=== PATIENT | female | born 2000 | race Hispanic/Latino ===

== ENCOUNTER → 2023-07-19 | Emergency (ER) | payer SELFPAY ==
[~2023-07-19] MED LIST: LORAZEPAM 1 MG TABLET ONE
--- OUTSIDE RECORDS SUMMARY | 2023-07-19 21:47 | XMS REPORT | Continuity of Care Document ---
Author Name Unknown Address [address] [place] [address]. [address] [place] [address] [facility]connect Address [address] [facility]. [address] [place] [address] Care Team Providers Care Truck Driver Flatbed Name Role Phone Unavailable Unavailable Unavailable Encounters Start Date/Time End Date/Time Encounter Type Admission Type Attending Clinicians Care Facility Care Department Encounter ID Source 2023-05-05 13:28:20 2023-05-05 13:28:20 Outpatient [facility] [id number] 2023-03-24 15:04:44 2023-03-24 15:04:44 Outpatient [facility] [id number] 2023-01-20 13:22:56 2023-01-20 13:22:56 Outpatient [facility] [id number] Results Test Description Test Time Test Comments Results Result Co mments Source HIV 1/2 4TH GEN, RFLX [id number] 03:46:24* Test Item Value Reference Range Interpretation Comme [facility] HIV 1/2 4TH GEN, RFLX CONF (test code = 3514) NON-REACTIVE NON-REACTIVE UNLESS OTHERWISE INDICATED, ALL TESTING PERFORMED AT [facility] [address] [place] [id number] CLEAT MAKER: PAT AGUAYO M.D. CLIA NUMBER [id number] [facility] [place]. [id number] HEPATITIS PANEL, [id number] 03:46:24* Test Item Value Reference Range Interpretation Comme nts HEPATITIS A IgM (test code = 63908) NON-REACTIVE NON-REACTIVE HEPATITIS B CORE IgM (test code = 4644) NON-REACTIVE NON-REACTIVE HEPATITIS B SURF AG (test code = 2739) NON-REACTIVE NON-REACTIVE HEPATITIS C ANTIBODY (test code = 4675) NON-REACTIVE NON-REACTIVE INTERPRETATION HEPATITIS A: (test code = 2552) (NOTE) Hepatitis A serology shows no evidence of acute hepatitis A. INTERPRETATION HEPATITIS B: (test code = 95757) (NOTE) Hepatitis B serology shows no evidence of acute hepatitis B andno indication of exposure to hepatitis B virus in the previous tito eight months. INTERPRETATION HEPATITIS C: (test code = 69521) (NOTE) Hepatitis C serology shows no evidence of exposure to hepatitisC virus at this time. It can take up to 12 months after exposure tothe hepatitis C virus for antibodies to become detectable in the blood in certain patients. [id number] 03:22:42* Test Item Value Reference Range Interpretation Comme nts RPR RESULT (test code = 3501) NON-REACTIVE NON-REACTIVE RPR TITER (test code = 3500) NOT INDIC. TITER NOT INDIC. TSH, THIRD [id number] 03:54:00* Test Item Value Reference Range Interpretation Comme nts TSH, THIRD GENERATION (test code = 2821) 1.160 UIU/ML 0.400-4.100 UNLESS OTHERWISE INDICATED, ALL TESTING PERFORMED AT [facility] [address] [place] [address] CLEAT MAKER: PAT AGUAYO M.D. CLIA NUMBER [id number] [facility] [place]. [id number] COMPREHENSIVE METABOLIC [id number] 03:24:28* Test Item Value Reference Range Interpretation Comme nts GLUCOSE (test code = 2217) 95 MG/DL 70-99 BUN (test code = 2208) 13 MG/DL 6-20 CREATININE (test code = 2214) 0.94 MG/DL 0.60-1.30 eGFR (2020 CKD-EPI) (test co de = 43663) 87 ML/MIN/1.73 >60 CALC BUN/CREAT (test code = 2235) 14 RATIO 6-28 SODIUM (test code = 2231) 140 MEQ/L 133-146 POTASSIUM (test code = 2228) 4.4 MEQ/L 3.5-5.4 CHLORIDE (test code = 2215) 103 MEQ/L 95-107 CARBON DIOXIDE (test code = 2206) 28 MEQ/L 19-31 CALCIUM (test code = 2209) 10.1 MG/DL 8.5-10.5 PROTEIN, TOTAL (test code = 222) 7.5 G/DL 6.1-8.3 ALBUMIN (test code = 220) 4.9 G/DL 3.5-5.2 CALC GLOBULIN (test code = 2240) 2.6 G/DL 1.9-3.7 CALC A/G RATIO (test code = 2234) 1.9 RATIO 1.0-2.6 BILIRUBIN, TOTAL (test code = 2207) 0.4 MG/DL <=1.2 ALKALINE PHOSPHATASE (test code = 2204) 61 U/L 40-115 AST (test code = 2218) 27 U/L 9-40 ALT (test code = 2219) 22 U/L 5-40 TSH, THIRD [id number] 05:46:02* Test Item Value Reference Range Interpretation Comme nts TSH, THIRD GENERATION (test code = 2821) 0.264 UIU/ML 0.400-4.100 L UNLESS OTHERWISE INDICATED, ALL TESTING PERFORMED AT [facility] [address] [place] [id number] CLEAT MAKER: PAT AGUAYO M.D. CLIA NUMBER [id number] [facility] [place]. [id number]
[2023-07-19 22:54] LABS: Specific Gravity 1.008 (1.005-1.030)
[2023-07-19 22:59] LABS: Absolute Lymphocytes (CBC) 1.6 K/uL (0.7-4.9); Hematocrit 38.7 % (36.0-45.0); Lymphocytes % 17.1 % (15.3-44.8); MCV 86.4 fL (80-100); MPV 9.1 fL (7.6-11.3); Platelets 232 thou/uL (152-406); RBC Red Blood Cell Count 4.48 M/uL (3.86-4.86)
[2023-07-19 23:02] LABS: Barbiturates NEGATIVE (NEGATIVE); Benzodiazepines NEGATIVE (NEGATIVE); Cocaine NEGATIVE (NEGATIVE); METHAMPHETAM NEGATIVE (NEGATIVE); Methadone NEGATIVE (NEGATIVE); Opiates NEGATIVE (NEGATIVE); Phencyclidine NEGATIVE (NEGATIVE); THC Cannibis POSITIVE (NEGATIVE)
[2023-07-19 23:16] LABS: Thyroid Stimulating Hormone 2.22 uIU/mL (0.358-3.740)
[2023-07-19 23:40] LABS: Albumin 3.8 g/dL (3.4-5.0); Bilirubin Direct 0.1 mg/dL (0-0.2); Bilirubin Indirect, Calculated 0.4 mg/dL (0.2-0.8); Bilirubin Total 0.5 mg/dL (0.2-1.0); Magnesium 2.2 mg/dL (1.6-2.4); Potassium 3.6 mEq/L (3.5-5.1); Protein, Total 7.4 g/dL (6.4-8.2); Troponin High Sensitivity 5.1 pg/mL (<58.9)
--- NOTE | 2023-07-20 00:04 | ER ---
Nurse's Notes [facility] Name: Breanne Castellanos Age: 22 yrs Sex: Female : 2000 Arrival Date: 07/19/2023 Time: 21:43 Bed 14 Private MD: Diagnosis: Syncope Near;Syncopal episodes, convulsive activity Presentation: 07/19 21:46 Chief complaint: EMS states: HAD SUBJECTIVE SZ-LIKE ACTIVITY SOME WEEKS AGO, TONIGHT bp STUFFED NOSTRILS WITH ETOH PADS TO PREVENT ANOTHER SEIZURE. Coronavirus screen: At this time, the client does not indicate any symptoms associated with coronavirus-19. Ebola Screen: No symptoms or risks identified at this time. No acute neurological deficit is noted. Pre-hospital glucose is not applicable to this patient. Initial Sepsis Screen: Does the patient meet any 2 criteria? No. Patient's initial sepsis screen is negative. Does the patient have a suspected source of infection? No. Patient's initial sepsis screen is negative. Risk Assessment: Do you want to hurt yourself or someone else? Patient reports no desire to harm self or others. Onset of symptoms is unknown. Care prior to arrival: IV initiated. 20 GA, in the right antecubital area. 21:46 Method Of Arrival: EMS: [facility] bp 21:46 Acuity: MICHAEL 3 bp Triage Assessment: 21:54 The onset of the patients symptoms was July 19, 2023 at 21:55. General: Appears in bp no apparent distress. Behavior is calm, cooperative, appropriate for age. Pain: Denies pain. Neuro: Reports SEIZURE. Stroke Activation: Physician: Stroke Attending; Name: ; Notified At: ; Arrived At: Physician: Chief Stroke Resident; Name: ; Notified At: ; Arrived At: Physician: Stroke Resident; Name: ; Notified At: ; Arrived At: Physician: ED Attending; Name: ; Notified At: ; Arrived At: Physician: ED Resident; Name: ; Notified At: ; Arrived At: 21:46 N/A bp Historical: - Allergies: 21:54 No Known Allergies; bp - PMHx: 21:54 None; bp - Immunization history:: Adult Immunizations up to date. - Social history:: Smoking status: Patient denies any tobacco usage or history of. - Family history:: not pertinent. Screenin:56 [facility] ED Fall Risk Assessment (Adult) History of falling in the last 3 months, bp including since admission No falls in past 3 months (0 pts). Abuse screen: Denies threats or abuse. Denies injuries from another. Nutritional screening: No deficits noted. Tuberculosis screening: No symptoms or risk factors identified. Assessment: 22:36 VAN Scoring: Arm Drift: Patients demonstrates NO arm weakness. Patient is VAN Negative. bp [place] Swallow Protocol Exclusion Criteria: Unable to remain alert for testing: No NPO for medical/surgical reason by provider order No Tracheostomy tube present No No thin liquids due to preexisting dysphagia/baseline modified diet thickened liquids No Exclusion Criteria Result: Proceed Brief Cognitive Screen What is your name? Normal, Where are you right now? Normal, What year is it? Normal. Oral Mechanism Examination Facial Symmetry: Normal, Motion: Normal, Lip Closure: Normal, Oral Mechanism Result: Normal. 3 oz Water Swallow Challenge: Pt able to drink all water without stopping, coughing, choking or throat clearing: Yes Result: PASS. TNKase (Tenecteplase) Screening: Contraindications: Rapidly improving condition or minor deficit: Yes. 07/20 00:10 Reassessment: PT D/C HOME WITH FAMILY. bp Vital Signs: 07/19 21:46 BP 120 / 74; Pulse 96; Resp 16; Temp 98; Pulse Ox 99% ; bp 21:50 BP 124 / 77; Pulse 90; Resp 18; Temp 99.1(O); Pulse Ox 96% on R/A; Weight 72.57 kg; oe Height 5 ft. 7 in. ; 22:35 BP 118 / 75; Pulse 79; Resp 24; Pulse Ox 98% ; bp 07/20 00:10 BP 118 / 75; Pulse 82; Resp 20; Pulse Ox 97% ; bp 07/19 21:50 Body Mass Index 25.06 (72.57 kg, 170.18 cm) oe NIH Stroke Scale Scores: 07/19 22:36 NIHSS Score: 0 bp ED Course: 21:45 Patient arrived in ED. bp 21:48 Donnie Kelly MD is Attending Physician. sp4 21:54 Triage completed. bp 21:54 Arm band placed on. bp 21:56 Patient has correct armband on for positive identification. bp 21:56 Maintain EMS IV. Dressing intact. Good blood return noted. Site clean \T\ dry. Gauge \T\ bp site: 20 GA R AC. 21:57 Juan Lama, RN is Primary Nurse. bp 22:20 EKG done, by ED staff, reviewed by Donnie Kelly MD. wm 22:44 TSH Sent. wm 22:44 T4 Free Sent. wm 22:44 Urine Drug Screen Sent. wm 22:44 Test, Urine Sent. wm 22:44 Basic Metabolic Panel Sent. wm 22:44 CBC with Diff Sent. wm 22:44 LFT's Sent. wm 22:44 Magnesium Sent. wm 22:44 NT PRO-BNP Sent. wm 22:44 Troponin HS Sent. wm 22:45 Placed in gown. Bed in low position. Call light in reach. Side rails up X 1. Adult w/ wm patient. 22:47 Client placed on continuous cardiac and pulse oximetry monitoring. NIBP monitoring wm applied. 22:59 XRAY Chest (1 view) In Process Unspecified. EDMS 23:06 CT Head Brain wo Cont In Process Unspecified. EDMS 07/20 00:03 Iván Patterson MD is Referral Physician. sp4 00:10 No provider procedures requiring assistance completed. IV discontinued, intact, bp bleeding controlled, No redness/swelling at site. Pressure dressing applied. Administered Medications: 07/19 22:24 Not Given (Patient Refused): lorazepam1 mg PO once bp Medication: 22:36 VIS not applicable for this client. bp Outcome: 07/20 00:04 Discharge ordered by . sp4 00:10 Discharged to home ambulatory, with family, bp 00:10 Condition: stable 00:10 Discharge instructions given to patient, family, Instructed on discharge instructions, follow up and referral plans. medication usage, Demonstrated understanding of instructions, follow-up care, medications, Prescriptions given X 1, 00:12 Patient left the ED. bp NIH Stroke Scale - NIH Stroke Score Date: 07/19/2023 Time: 22:36 Total Score = 0 10. Dysarthria (speech clarity - read or repeat words) - 0(Normal) 11. Extinction and Inattention (visual/tactile/auditory/spatial/personal) - 0(No abnormality) 1a. Level of Consciousness (LOC) - 0(Alert) 1b. Level of Consciousness (LOC) (Month \T\ Age) - 0(Both) 1c. LOC Commands (Open \T\ Closes Eyes/Processing Engineer) - 0(Both) 2. Best Gaze (Lateral Gaze Paresis) - 0(Normal) 3. Visual Field Loss - 0(No visual loss) 4. Facial Palsy - 0(Normal) 5a. Left Arm: Motor (10-second hold) - 0(No drift) 5b. Right Arm: Motor (10-second hold) - 0(No drift) 6a. Left Leg: Motor (5-second hold - always test supine) - 0(No drift) 6b. Right Leg: Motor (5-second hold - always test supine) - 0(No drift) 7. Limb Ataxia (finger/nose \T\ heel/hunter - test with eyes open) - 0(Absent) 8. Sensory Loss (pinprick arms/legs/face) - 0(Normal) 9. Best Language: Aphasia (description/naming/reading) - 0(No aphasia) Initials: bp Signatures: Dispatcher [employer] EDMS Rafal Edmonds Brian, RONDA RN Mary Haney Sergey, MD MD sp4 Corrections: (The following items were deleted from the chart) 07/19 22:47 22:45 Client placed on continuous cardiac and pulse oximetry monitoring. NIBP wm monitoring applied. monitoring tech on. wm
--- NOTE | 2023-07-20 00:04 | EDPHYS ---
Physician Documentation [facility] Name: Breanne Castellanos Age: 22 yrs Sex: Female : 2000 Arrival Date: 07/19/2023 Time: 21:43 Bed 14 Private MD: ED Physician Donnie Kelly HPI: 07/19 21:48 This 22 yrs old Female presents to ER via Unassigned with complaints of sp4 Weakness. 21:49 22 -year-old female presents with EMS for complaint of feeling unwell. Patient states sp4 that she has had some convulsive activity 2 weeks ago and she wants to be evaluated for seizure disorder. . Patient has history of hypothyroidism she takes Synthroid 100 mcg p.o. daily. . 22:52 States about 2 months ago she had a fainting episode on the bleachers at the game and sp4 had few more episodes of syncope after that. History of seizures in the family. Patient may have had convulsive activity during one of his syncopal episodes. Patient reports she smokes marijuana and vape cartridges. Historical: - Allergies: 21:54 No Known Allergies; bp - PMHx: 21:54 None; bp - Immunization history:: Adult Immunizations up to date. - Social history:: Smoking status: Patient denies any tobacco usage or history of. - Family history:: not pertinent. ROS: 21:51 Constitutional: Negative for fever, chills, and weight loss, positive for generalized sp4 weakness 21:51 All other systems are negative, Exam: 21:51 Constitutional: This is a well developed, well nourished patient who is awake, alert, sp4 and in no acute distress. Head/Face: Normocephalic, atraumatic. Eyes: Pupils equal round and reactive to light, extra-ocular motions intact. Lids and lashes normal. Conjunctiva and sclera are not injected. Cornea within normal limits. Periorbital areas with no swelling, redness, or edema. ENT: Nares patent. No nasal discharge, no septal abnormalities noted. Tympanic membranes are normal and external auditory canals are clear. Oropharynx with no redness, swelling, or masses, exudates, or evidence of obstruction, uvula midline. Mucous membranes moist. Neck: Trachea midline, no thyromegaly or masses palpated, and no cervical lymphadenopathy. Supple, full range of motion without nuchal rigidity, or vertebral point tenderness. Chest/axilla: Normal chest wall appearance and motion. Nontender with no deformity. No lesions are appreciated. Cardiovascular: Regular rate and rhythm with a normal S1 and S2. No gallops, murmurs, or rubs. Normal PMI, no JVD. No pulse deficits. Respiratory: Lungs have equal breath sounds bilaterally, clear to auscultation and percussion. No rales, rhonchi or wheezes noted. No increased work of breathing, no retractions or nasal flaring. Abdomen/GI: Soft, non-tender, with normal bowel sounds. No distension or tympany. No guarding or rebound. No evidence of tenderness throughout. Back: No spinal tenderness. No costovertebral tenderness. Skin: Warm, dry with normal turgor. Normal color with no rashes, no lesions, and no evidence of cellulitis. MS/ Extremity: Pulses equal, no cyanosis. Neurovascular intact. Full, normal range of motion. Neuro: Awake and alert, GCS 15, oriented to person, place, time, and situation. Cranial nerves II-XII grossly intact. Motor strength 5/5 in all extremities. Sensory grossly intact. Psych: Awake, alert, with orientation to person, place and time. Behavior, mood, and affect are within normal limits 22:52 ECG was reviewed by the Attending Physician. EKG time 2216. Normal sinus rhythm with sp4 sinus arrhythmia rate 70 Vital Signs: 21:46 BP 120 / 74; Pulse 96; Resp 16; Temp 98; Pulse Ox 99% ; bp 21:50 BP 124 / 77; Pulse 90; Resp 18; Temp 99.1(O); Pulse Ox 96% on R/A; Weight 72.57 kg; oe Height 5 ft. 7 in. ; 22:35 BP 118 / 75; Pulse 79; Resp 24; Pulse Ox 98% ; bp 07/20 00:10 BP 118 / 75; Pulse 82; Resp 20; Pulse Ox 97% ; bp 07/19 21:50 Body Mass Index 25.06 (72.57 kg, 170.18 cm) oe NIH Stroke Scale Scores: 07/19 22:36 NIHSS Score: 0 bp MDM: 21:51 Patient medically screened. sp4 23:54 ED course: CLINICAL HISTORY:22 years Female, weakness Comparison: None FINDINGS: No sp4 focal lung consolidation. No pleural effusion. No pneumothorax. Cardiomediastinal silhouette is within normal limits. No acute osseous abnormality. IMPRESSION: No acute cardiopulmonary disease. . ED course: FINDINGS: Brain: No acute intracranial hemorrhage. No extra-axial collection. No mass effect or herniation Ventricles: Within normal limits in size. Globes and orbits: No acute abnormality. Bones: No acute osseous finding Paranasal sinuses: Paranasal sinuses are clear. Mastoid air cells: Well pneumatized. Soft tissues: Within normal limits IMPRESSION: No acute intracranial abnormality. . 07/20 00:01 Data reviewed: vital signs, nurses notes, EMS record, lab test result(s), EKG, sp4 radiologic studies, CT scan, plain films. Consideration of Admission/Observation Escalation of care including admission/observation considered. ED course: Patient at this time stable for discharge home. It sounds like patient may be having anxiety attacks associated with syncopal episodes. He does not appear that seizure disorder is a likely diagnosis but we will refer patient to Dr. Patterson for further evaluation. . 07/19 21:49 Order name: Basic Metabolic Panel; Complete Time: 23:51 sp4 07/19 21:49 Order name: CBC with Diff; Complete Time: 23:51 4 07/19 21:49 Order name: LFT's; Complete Time: 23:51 sp4 07/19 21:49 Order name: Magnesium; Complete Time: 23:51 sp4 07/19 21:49 Order name: NT PRO-BNP; Complete Time: 23:51 4 07/19 21:49 Order name: Troponin HS; Complete Time: 23:51 sp4 07/19 21:49 Order name: Test, Urine; Complete Time: 23:51 sp4 07/19 21:49 Order name: Urine Drug Screen; Complete Time: 23:51 sp4 07/19 21:50 Order name: T4 Free; Complete Time: 23:51 sp4 07/19 21:51 Order name: TSH; Complete Time: 23:51 sp4 07/19 21:48 Order name: CT Head Brain wo Cont 4 07/19 21:49 Order name: XRAY Chest (1 view) 4 07/19 21:49 Order name: EKG; Complete Time: 21:49 4 07/19 21:49 Order name: Cardiac monitoring; Complete Time: 21:57 sp4 07/19 21:49 Order name: EKG - Nurse/Tech; Complete Time: 22:24 sp4 07/19 21:49 Order name: IV Saline Lock; Complete Time: 22:24 sp4 07/19 21:49 Order name: Labs collected and sent; Complete Time: 22:24 sp4 07/19 21:49 Order name: O2 Per Protocol; Complete Time: :57 sp4 07/19 21:49 Order name: O2 Sat Monitoring; Complete Time: :57 sp4 EC/23 22:52 Rate is 70 beats/min. Rhythm is regular, Normal Sinus Rhythm. QRS [place] is Normal. NC sp4 interval is normal. QRS interval is normal. QT interval is normal. No Q waves. T waves are Normal. No ST changes noted. Clinical impression: Normal ECG. Interpreted by me. Reviewed by me. Administered Medications: 22: Not Given (Patient Refused): lorazepam1 mg PO once bp Disposition Summary: 07/20/23 00:04 Discharge Ordered Notes: Location: Home sp4 Problem: new sp4 Symptoms: have improved sp4 Condition: Stable sp4 Diagnosis - Syncope Near sp4 - Syncopal episodes, convulsive activity sp4 Followup: sp4 - With: Iván Patterson MD - When: 7 - 10 days - Reason: Recheck today's complaints Discharge Instructions: - Discharge Summary Sheet sp4 - Syncope, [id number] sp4 Forms: - Patient Portal Instructions sp4 - Work release form pm6 Prescriptions: - Valium 5 mg Oral tablet - take 1 tablet ORAL route once daily As needed PRN anxiety or convulsions; 20 sp4 tablet; Refills: 0, Product Selection Permitted NIH Stroke Scale - NIH Stroke Score Date: 07/19/2023 Time: 22:36 Total Score = 0 10. Dysarthria (speech clarity - read or repeat words) - 0(Normal) 11. Extinction and Inattention (visual/tactile/auditory/spatial/personal) - 0(No abnormality) 1a. Level of Consciousness (LOC) - 0(Alert) 1b. Level of Consciousness (LOC) (Month \T\ Age) - 0(Both) 1c. LOC Commands (Open \T\ Closes Eyes/Universal Winding Machine Operator) - 0(Both) 2. Best Gaze (Lateral Gaze Paresis) - 0(Normal) 3. Visual Field Loss - 0(No visual loss) 4. Facial Palsy - 0(Normal) 5a. Left Arm: Motor (10-second hold) - 0(No drift) 5b. Right Arm: Motor (10-second hold) - 0(No drift) 6a. Left Leg: Motor (5-second hold - always test supine) - 0(No drift) 6b. Right Leg: Motor (5-second hold - always test supine) - 0(No drift) 7. Limb Ataxia (finger/nose \T\ heel/hunter - test with eyes open) - 0(Absent) 8. Sensory Loss (pinprick arms/legs/face) - 0(Normal) 9. Best Language: Aphasia (description/naming/reading) - 0(No aphasia) Initials: bp Signatures: Dispatcher [employer] Juan Restrepo, RN RN Donnie Tenorio MD MD sp4
[2023-07-20 04:56] VITALS: BP 118/75; TEMP 99.1
[2023-07-20 05:08] VITALS: O2SAT 97
--- NOTE | 2023-07-20 12:12 | RAD REPORT ---
EXAM DESCRIPTION: CT - Head Brain Wo Cont - 07/19/2023 11:05 pm CLINICAL HISTORY: 22 years Female Gen weakness COMPARISON: None TECHNIQUE: Contiguous axial images of the brain were obtained without the administration of intraven ous contrast.This exam was performed according to our departmental dose-optimization program which in cludes use of Automated Exposure Control, adjustment of the mA and/or kV according to patient size an d/or use of iterative reconstruction technique. DLP: 866 mGy*cm FINDINGS: Brain: No acute intracranial hemorrhage. No extra-axial collection. No mass effect or donna iation Ventricles: Within normal limits in size. Globes and orbits: No acute abnormality. Bones: No acute osseous finding Paranasal sinuses: Paranasal sinuses are clear. Mastoid air cells: Well pneumatized. Soft tissues: Within normal limits IMPRESSION: No acute intracranial abnormality. Electronically signed by: Butch Tinoco DO 07/19/2023 11:16 PM [employer]OUR [employer]ER Due to temporary technical issues with the PACS/Fluency reporting system, reports are being signed by the in house radiologist without review as a courtesy to ensure prompt reporting. The interpreting r adiologist is fully responsible for the content of the report.
--- NOTE | 2023-07-20 12:19 | RAD REPORT ---
EXAM DESCRIPTION: RAD - Chest Single View - 07/19/2023 10:57 pm CLINICAL HISTORY: 22 years Female, weakness COMPARISON: None FINDINGS: No focal lung consolidation. No pleural effusion. No pneumothorax. Cardiomediastinal silhouette is within normal limits. No acute osseous abnormality. IMPRESSION: No acute cardiopulmonary disease. Electronically signed by: Butch Tionco DO 07/19/2023 11:05 PM MANAGER PET Due to temporary technical issues with the PACS/Fluency reporting system, reports are being signed by the in house radiologist without review as a courtesy to ensure prompt reporting. The interpreting r adiologist is fully responsible for the content of the report.
--- NOTE | 2023-07-20 17:23 | EKG ---
Test Date: 2023-07-19 Test Time: 22:17:58 Corporate Sales Manager: MEASUREMENT RESULTS: Intervals: Rate: 70 WV: 170 QRSD: 80 QT: 392 QTc: 423 [place]: P: 52 WV: 170 QRS: 82 T: 66 INTERPRETIVE STATEMENTS: Normal sinus rhythm with sinus arrhythmia Normal ECG No previous ECG available for comparison Electronically Signed On 07-20-23 17:22:57 PERSONAL FITNESS TRAINER by Filippo Benitez
== END ==
LOC: ER 21:43
DX: R55 Syncope and collapse (principal); R56.9 Unspecified convulsions
CPT/HCPCS: 36415; 70450; 71045; 80048; 80076; 80307; 81025; 83735; 83880; 84439; 84443; 84484; 85025; 93005; 99284

== ENCOUNTER → 2023-07-22 | Emergency (ER) | payer SELFPAY ==
[~2023-07-22] MED LIST changes: +DIPHENHYDRAMINE 25 MG TAB/CAP ONE
--- OUTSIDE RECORDS SUMMARY | 2023-07-22 14:51 | XMS REPORT | Continuity of Care Document ---
Author Name Unknown Address [address] [facility] [address] [place] [address] [facility] thconnect Address [address] [facility] [address] [place] [address] Care Team Providers Care Robotics Engineer Name Role Phone Unavailable Unavailable Unavailable Encounters Start Date/Time End Date/Time Encounter Type Admission Type Attending Clinicians Care Facility Care Department Encounter ID Source 2023-05-05 13:28:20 2023-05-05 13:28:20 Outpatient [facility] [id number] Rosalio Ford 2023-03-24 15:04:44 2023-03-24 15:04:44 Outpatient [facility] [id number] Rosalio Ford 2023-01-20 13:22:56 2023-01-20 13:22:56 Outpatient [facility] [id number] Rosalio Karen Ford Results Test Description Test Time Test Comments Results Result Co mments Source HEPATITIS PANEL, [id number] 03:46:24* Test Item Value Reference Range Interpretation Comme nts HEPATITIS A IgM (test code = 37844) NON-REACTIVE NON-REACTIVE HEPATITIS B CORE IgM (test code = 4644) NON-REACTIVE NON-REACTIVE HEPATITIS B SURF AG (test code = 2739) NON-REACTIVE NON-REACTIVE HEPATITIS C ANTIBODY (test code = 4675) NON-REACTIVE NON-REACTIVE INTERPRETATION HEPATITIS A: (test code = 2552) (NOTE) Hepatitis A serology shows no evidence of acute hepatitis A. INTERPRETATION HEPATITIS B: (test code = 24798) (NOTE) Hepatitis B serology shows no evidence of acute hepatitis B andno indication of exposure to hepatitis B virus in the previous tito eight months. INTERPRETATION HEPATITIS C: (test code = 92483) (NOTE) Hepatitis C serology shows no evidence of exposure to hepatitisC virus at this time. It can take up to 12 months after exposure tothe hepatitis C virus for antibodies to become detectable in the blood in certain patients. HIV 1/2 4TH GEN, RFLX [id number] 03:46:24* Test Item Value Reference Range Interpretation Comme nts HIV 1/2 4TH GEN, RFLX CONF (test code = 3514) NON-REACTIVE NON-REACTIVE UNLESS OTHERWISE INDICATED, ALL TESTING PERFORMED AT [facility] [address] [place] [address] ORE GRADER: PAT AGUAYO M.D. CLIA NUMBER [id number] [place]. [id number] 03:22:42* Test Item Value Reference Range Interpretation Comme nts RPR RESULT (test code = 3501) NON-REACTIVE NON-REACTIVE RPR TITER (test code = 3500) NOT INDIC. TITER NOT INDIC. TSH, THIRD [id number] 03:54:00* Test Item Value Reference Range Interpretation Comme [facility] TSH, THIRD GENERATION (test code = 2821) 1.160 UIU/ML 0.400-4.100 UNLESS OTHERWISE INDICATED, ALL TESTING PERFORMED AT [facility] [address] [place] [address] ORE GRADER: PAT AGUAYO M.D. CLIA NUMBER [id number] [place]. [id number] COMPREHENSIVE METABOLIC [id number] 03:24:28* Test Item Value Reference Range Interpretation Comme nts GLUCOSE (test code = 2217) 95 MG/DL 70-99 BUN (test code = 2208) 13 MG/DL 6-20 CREATININE (test code = 2214) 0.94 MG/DL 0.60-1.30 eGFR (2020 CKD-EPI) (test co de = 44517) 87 ML/MIN/1.73 >60 CALC BUN/CREAT (test code = 2235) 14 RATIO 6-28 SODIUM (test code = 2231) 140 MEQ/L 133-146 POTASSIUM (test code = 2228) 4.4 MEQ/L 3.5-5.4 CHLORIDE (test code = 2215) 103 MEQ/L 95-107 CARBON DIOXIDE (test code = 2206) 28 MEQ/L 19-31 CALCIUM (test code = 2209) 10.1 MG/DL 8.5-10.5 PROTEIN, TOTAL (test code = 2229) 7.5 G/DL 6.1-8.3 ALBUMIN (test code = 2201) 4.9 G/DL 3.5-5.2 CALC GLOBULIN (test code = 2240) 2.6 G/DL 1.9-3.7 CALC A/G RATIO (test code = 2234) 1.9 RATIO 1.0-2.6 BILIRUBIN, TOTAL (test code = 2207) 0.4 MG/DL <=1.2 ALKALINE PHOSPHATASE (test code = 2204) 61 U/L 40-115 AST (test code = 2218) 27 U/L 9-40 ALT (test code = 2219) 22 U/L 5-40 TSH, THIRD [id number] 05:46:02* Test Item Value Reference Range Interpretation Comme nts TSH, THIRD GENERATION (test code = 2821) 0.264 UIU/ML 0.400-4.100 L UNLESS OTHERWISE INDICATED, ALL TESTING PERFORMED AT [facility] [address] [place] [id number] ORE GRADER: PAT AGUAYO M.D. CLIA NUMBER [id number] [facility] [place]. [id number]
--- NOTE | 2023-07-22 16:12 | EDPHYS ---
Physician Documentation [facility] Name: Breanne Castellanos Age: 22 yrs Sex: Female : 2000 Arrival Date: 07/22/2023 Time: 14:49 Bed 13 Private MD: ED Physician Donnie Kelly HPI: 07/22 14:52 This 22 yrs old Female presents to ER via Unassigned with complaints of sp4 Anxiety. 19:49 Patient states that she has developed acute anxiety type symptoms associated with sp4 parameters of rapid heart rate at the store today. This was unprovoked. 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 - Social history:: Smoking status: Patient reports the use of cigarette tobacco products. - Family history:: not pertinent. ROS: 19:49 Constitutional: Negative for fever, chills, and weight loss, positive for anxiety sp4 19:49 All other systems are negative, Exam: 19:49 Constitutional: This is a well developed, well nourished patient who is awake, alert, sp4 anxious appearing female Head/Face: Normocephalic, atraumatic. Eyes: Pupils equal round and reactive to light, extra-ocular motions intact. Lids and lashes normal. Conjunctiva and sclera are not injected. Cornea within normal limits. Periorbital areas with no swelling, redness, or edema. ENT: Nares patent. No nasal discharge, no septal abnormalities noted. Tympanic membranes are normal and external auditory canals are clear. Oropharynx with no redness, swelling, or masses, exudates, or evidence of obstruction, uvula midline. Mucous membranes moist. Neck: Trachea midline, no thyromegaly or masses palpated, and no cervical lymphadenopathy. Supple, full range of motion without nuchal rigidity, or vertebral point tenderness. Chest/axilla: Normal chest wall appearance and motion. Nontender with no deformity. No lesions are appreciated. Cardiovascular: Regular rate and rhythm with a normal S1 and S2. No gallops, murmurs, or rubs. Normal PMI, no JVD. No pulse deficits. Respiratory: Lungs have equal breath sounds bilaterally, clear to auscultation and percussion. No rales, rhonchi or wheezes noted. No increased work of breathing, no retractions or nasal flaring. Abdomen/GI: Soft, non-tender, with normal bowel sounds. No distension or tympany. No guarding or rebound. No evidence of tenderness throughout. Back: No spinal tenderness. No costovertebral tenderness. Skin: Warm, dry with normal turgor. Normal color with no rashes, no lesions, and no evidence of cellulitis. MS/ Extremity: Pulses equal, no cyanosis. Neurovascular intact. Full, normal range of motion. Neuro: Awake and alert, GCS 15, oriented to person, place, time, and situation. Cranial nerves II-XII grossly intact. Motor strength 5/5 in all extremities. Sensory grossly intact. Psych: Awake, alert, with orientation to person, place and time. Anxious appearing female Vital Signs: 14:53 BP 151 / 94; Pulse 114; Resp 18; Temp 98.2; Pulse Ox 100% on R/A; Weight 61.23 kg; mb9 Height 5 ft. 3 in. ; 15:15 BP 132 / 81; Pulse 74; Resp 18; Pulse Ox 97% on R/A; me1 16:00 BP 121 / 84; Pulse 72; Resp 19; Pulse Ox 99% on R/A; me1 14:53 Body Mass Index 23.91 (61.23 kg, 160.02 cm) mb9 MDM: 15:08 Patient medically screened. sp4 19:50 Differential Diagnosis altered mental status, sepsis, flu, Panic attack. Data reviewed: sp4 vital signs, nurses notes, old medical records. ED course: Patient has improved after medications. Patient is stable for discharge home. Patient was advised to take as needed p.o. Valium. Which was prescribed on the prior visit. Patient was advised to see her primary care physician for management of anxiety and prescription of anxiety medications.. Administered Medications: 15:08 Drug: LORazepam PO 1 mg PO once Route: PO; me1 15:24 Follow up: Response: No adverse reaction; Anxiety decreased me1 15:08 Drug: diphenhydrAMINE PO 25 mg PO once Route: PO; me1 15:25 Follow up: Response: No adverse reaction; Anxiety decreased me1 Disposition Summary: 07/22/23 16:11 Discharge Ordered Problem: new sp4 Symptoms: have improved sp4 Condition: Stable sp4 Diagnosis - Anxiety disorder, unspecified sp4 - Acute anxiety attack sp4 Followup: sp4 - With: Private Physician - When: 7 - 10 days - Reason: Recheck today's complaints Discharge Instructions: - Discharge Summary Sheet sp4 - Panic Attack, [id number] sp4 Forms: - Patient Portal Instructions sp4 Signatures: Dispatcher [employer] Ruby Barron RN RN mb9 Donnie Kelly MD MD sp4 Nori Asencio RN RN me1
--- NOTE | 2023-07-22 16:12 | ER ---
Nurse's Notes [facility] Name: Breanne Castellanos Age: 22 yrs Sex: Female : 2000 Arrival Date: 07/22/2023 Time: 14:49 Bed 13 Private MD: Diagnosis: Anxiety disorder, unspecified;Acute anxiety attack Presentation: 07/22 14:53 Chief complaint: Patient states: "I was here a few days ago and was prescribed Valium mb9 for my anxiety. I haven't taken any of my anxiety medication. I was at [place] today and my anxiety got worse. My heart was beating fast and makes me feel faint.". Coronavirus screen: At this time, the client does not indicate any symptoms associated with coronavirus-19. Ebola Screen: No symptoms or risks identified at this time. Initial Sepsis Screen: Does the patient meet any 2 criteria? No. Patient's initial sepsis screen is negative. Does the patient have a suspected source of infection? No. Patient's initial sepsis screen is negative. Risk Assessment: Do you want to hurt yourself or someone else? Patient reports no desire to harm self or others. Onset of symptoms was July 22, 2023. 14:53 Method Of Arrival: Ambulatory mb9 14:53 Acuity: MICHAEL 3 mb9 Triage Assessment: 14:56 General: Appears uncomfortable, Behavior is anxious. Pain: Denies pain. Neuro: Reports mb9 dizziness. Cardiovascular: Patient's skin is warm and dry. Respiratory: Airway is patent Respiratory effort is even, unlabored, Respiratory pattern is regular, symmetrical. GI: No signs and/or symptoms were reported involving the gastrointestinal system. Musculoskeletal: Range of motion: intact in all extremities. 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 - Social history:: Smoking status: Patient reports the use of cigarette tobacco products. - Family history:: not pertinent. Screenin:08 [facility] ED Fall Risk Assessment (Adult) History of falling in the last 3 months, me1 including since admission No falls in past 3 months (0 pts) Confusion or Disorientation No (0 pts) Intoxicated or Sedated No (0 pts) Impaired Gait No (0 pts) Mobility Assist Device Used No (0 pt) Altered Elimination No (0 pt) Score/Fall Risk Level 0 - 2 = Low Risk Maintained a safe environment, Provided non-skid footwear, Hourly rounding (assess needs \\T\\ fall precautionary measures) done. Abuse screen: Denies threats or abuse. Nutritional screening: No deficits noted. Tuberculosis screening: No symptoms or risk factors identified. Assessment: 15:08 General: Appears distressed, well groomed, well developed, well nourished, Behavior is me1 cooperative, appropriate for age, anxious, restless, Reports "I was here a few days ago and was prescribed Valium for my anxiety. I haven't taken any of my anxiety medication. I was at [place] today and my anxiety got worse. My heart was beating fast and makes me feel faint.". Pain: Denies pain. Neuro: Level of Consciousness is awake, alert, obeys commands, Oriented to person, place, time, situation, Appropriate for age Reports numbness in nose and right arm. Cardiovascular: Capillary refill < 3 seconds Patient's skin is warm and dry. Cardiovascular: Reports "heart racing". Respiratory: Airway is patent Respiratory effort is even, unlabored, Respiratory pattern is regular, symmetrical. 15:30 General: Refused IV/lab work as she had some done two days ago. Dr Kelly informed me1 and he is ok without doing labs again. . Vital Signs: 14:53 BP 151 / 94; Pulse 114; Resp 18; Temp 98.2; Pulse Ox 100% on R/A; Weight 61.23 kg; mb9 Height 5 ft. 3 in. ; 15:15 BP 132 / 81; Pulse 74; Resp 18; Pulse Ox 97% on R/A; me1 16:00 BP 121 / 84; Pulse 72; Resp 19; Pulse Ox 99% on R/A; me1 14:53 Body Mass Index 23.91 (61.23 kg, 160.02 cm) mb9 ED Course: 14:50 Patient arrived in ED. mr 14:52 Donnie Kelly MD is Attending Physician. sp4 14:55 Triage completed. mb9 14:55 Arm band placed on. mb9 15:02 Nori Asencio, RN is Primary Nurse. me1 15:08 Patient has correct armband on for positive identification. Bed in low position. Call me1 light in reach. Side rails up X2. Provided Education on: POC. Verbalized understanding. . 15:08 No provider procedures requiring assistance completed. me1 16:18 Patient did not have IV access during this emergency room visit. me1 Administered Medications: 15:08 Drug: LORazepam PO 1 mg PO once Route: PO; me1 15:24 Follow up: Response: No adverse reaction; Anxiety decreased me1 15:08 Drug: diphenhydrAMINE PO 25 mg PO once Route: PO; me1 15:25 Follow up: Response: No adverse reaction; Anxiety decreased me1 Medication: 15:08 VIS not applicable for this client. me1 Outcome: 16:11 Discharge ordered by MD. sp4 16:18 Discharged to home ambulatory, me1 16:18 Condition: stable 16:18 Discharge instructions given to patient, Instructed on discharge instructions, follow up and referral plans. Demonstrated understanding of instructions, follow-up care, 16:18 Patient left the ED. me1 Signatures: Ruby Dos Santos, Moo Reg mr Bryce, Ruby Dubon, RN RN mb9 Donnie Kelly MD MD sp4 Nori Asencio, RN RN me1 Corrections: (The following items were deleted from the chart) 14:57 14:53 BP 151 / 94; Pulse 98bpm; Resp 18bpm; Pulse Ox 100% RA; Temp 98.2F; 61.23 kg; mb9 Height 5 ft. 3 in.; BMI: 23.9; mb9 15:08 14:53 Chief complaint: Patient states: "I was here a few days ago and was prescribed me1 Valium for my anxiety. I haven't taken any of my anxiety medication. I was at [place] today and my anxiety got worse. My heart was beating fast and makes me feel faint." mb9
[2023-07-22 16:43] VITALS: BP 121/84; TEMP 98.2; O2SAT 99
== END ==
LOC: ER 14:49
DX: F41.0 Panic disorder [episodic paroxysmal anxiety] (principal); F41.9 Anxiety disorder, unspecified; Z72.0 Tobacco use